=== PATIENT | male | born 1970 | race Caucasian/White ===

== ENCOUNTER 2017-09-20 19:58 | Emergency (ER) | payer OTHER ==
[2017-09-20 20:25] VITALS: BP 149/90
--- NOTE | 2017-09-20 20:51 | UC ---
Hand/Wrist HPI - HPI Summary HPI Summary: Tried to tear finger nail off with a belt press operator. - History Of Current Complaint Chief Complaint: UCLaceration Stated Complaint: LEFT RING FINGERNAIL INJURY Time Seen by Provider: 09/20/17 20:41 Hx Obtained From: Patient Mechanism Of Injury: spool sander 40 grit sandpaper on left 4th finger. Onset/Duration: Sudden Onset, Still Present Severity Initially: Severe Severity Currently: Severe Character Of Pain: Sharp, Throbbing Aggravating Factor(s): Movement Alleviating Factor(s): Ice Associated Signs And Symptoms: Negative: Numbness/Tingling Related History: Dominant Hand Right - Allergies/Home Medications Allergies/Adverse Reactions: Allergies Allergy/AdvReac Type Severity Reaction Status Date / Time No Known Allergies Allergy Verified 09/20/17 20:25 Home Medications: Home Medications Carisoprodol TAB* [Soma TAB*] 350 mg PO Q6H PRN 09/20/17 [History Confirmed ] Hydrocodone-Acetaminophen [Hydrocodone Bitartrate/AC 7.5-325 mg] 1 tab PO QID [History Confirmed 09/20/17] SUMAtriptan TAB* [Imitrex TAB*] 25 mg PO SEE INSTRUCTIONS 09/20/17 [History Confirmed 09/20/17] PMH/Surg Hx/FS Hx/Imm Hx Cardiovascular History: Hypertension - Surgical History Surgical History: Yes Surgery Procedure, Year, and Place: LASIK - Family History Known Family History: Positive: Hypertension, Diabetes Negative: Cardiac Disease - Social History Occupation: Employed Full-time Lives: With Family Alcohol Use: None Substance Use Type: None Smoking Status (MU): Never Smoked Tobacco Review of Systems Skin: Other - wound left 4th finger over nail. Is Patient Immunocompromised?: No All Other Systems Reviewed And Are Negative: Yes Physical Exam Triage Information Reviewed: Yes Appearance: Well-Appearing, Well-Nourished, Pain Distress Vital Signs: Initial Vital Signs Temp 98.2 F 09/20/17 20:22 Pulse 54 09/20/17 20:22 Resp 16 09/20/17 20:22 BP 149/90 09/20/17 20:22 Pulse Ox 100 09/20/17 20:22 Vital Signs Reviewed: Yes Eyes: Positive: Conjunctiva Clear Neck exam: Normal Respiratory Exam: Normal Cardiovascular Exam: Normal Musculoskeletal: Positive: ROM Limited @ - Left ring finger Neurological Exam: Normal Psychological Exam: Normal Skin: Positive: Other - Open wound left 4th finger with nail avulsed. Tourniquet placed as bleeding was profuse. Procedures - Laceration/Wound Repair 1 Location: upper extremity - left 4th finger under nail Description: Joint Proximity - over the left 4th Distal phalynx. UNABLE TO REPAIR. Anesthesia: Digital - 0.25%, Marcaine Length, Depth and Shape: 0.8 cm jagged under the nail Betadine Prep?: Yes Laceration/Wound Explored: clean Closure: Skin Adhesive - used to hold nail in place. Number of Sutures: 0 - Unable to repair as wound extends down onto the distal phalynx Diagnostics - Radiology No standard instances Xray Interpretation: Positive (See Comments) - Distal phalynx fracture Radiology Interpretation Completed By: Radiologist Hand/Wrist Course/Dx - Differential Dx/Diagnosis Differential Diagnosis/HQI/PQRI: Abrasion, Fracture, Puncture Wound Provider Diagnoses: Open fracture distal 4th finger phalynx. with nail avulsion Discharge - Discharge Plan Condition: Stable Disposition: HOME Referrals: Harley Greenwood MD [Primary Care Provider] - Additional Instructions: GO STRAIGHT TO THE [facility].
[2017-09-20] MEDS ORDERED: Bupivacaine 0.5%* 50 ML VIAL INJ ONE (20:56)
[2017-09-20] MEDS ORDERED: Bupivacaine 0.25% SDV* 30 ML ONE (21:03)
[2017-09-20] MEDS ORDERED: Bupivacaine 0.25% SDV* 30 ML INJ ONE (21:03)
[2017-09-20] MEDS ORDERED: Gelfoam 12-7 ADSORBABL SPONGE* 1 EA SPONGE ONE (21:26)
--- NOTE | 2017-09-20 22:05 | RAD ---
INDICATION: Left ring finger injury. TECHNIQUE: 3 views of the left ring finger were obtained. FINDINGS: There is a metal clamp which projects over the proximal phalanx. There appears to be tourniquet present at the level of the midportion of the proximal phalanx. There is soft tissue swelling adjacent to the distal phalanx. There is air in the region of the nailbed along the dorsal aspect of the distal phalanx. There is an adjacent slightly comminuted nondisplaced fracture of the tuft of the distal phalanx likely representing an open fracture. No other fractures are seen. IMPRESSION: SLIGHTLY COMMINUTED NONDISPLACED OPEN FRACTURE OF THE DISTAL PHALANX.
== END 2017-09-20 22:16 | disposition short-term general hospital (02) ==
LOC: UCCORT 19:58
DX: S62.665B Nondisplaced fracture of distal phalanx of left ring finger, initial encounter for open fracture (principal); W29.8XXA Contact with other powered hand tools and household machinery, initial encounter; Y93.9 Activity, unspecified; Y92.9 Unspecified place or not applicable; I10 Essential (primary) hypertension
CPT/HCPCS: 73140; 99212; A9270-GY; G0463

== ENCOUNTER 2017-09-20 22:55 | Emergency (ER) | payer OTHER ==
[2017-09-20] MEDS ORDERED: ceFAZolin 1 GM VIAL(*) 1 GM in NS 0.9% 50 ML* 50 ML IVPB ONE (23:21)
[2017-09-20] MEDS ORDERED: Lidocaine 1%* 5 ML VIAL INJ ONE (23:35)
--- NOTE | 2017-09-20 23:43 | ED ---
Upper Extremity Pain - HPI Summary HPI Summary: 46M presents with left ring finger. He got it stuck in a michelle. He nail was avulsed so he went to urgent care where had xray showed open tuft fracture. The provider in urgent care shoved the nail back under and glue it. He states the area continued to bleed so placed in pressure dressing and sent to ED. in ED there is no active bleeding. patient is not on blood thinners. 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 no pain at moment as was blocked digitally. tetanus is up to date. did not give antibiotic in urgent care. - History of Current Complaint Chief Complaint: EDExtremityUpper Stated Complaint: LT RING FINGER INJURY Time Seen by Provider: 09/20/17 23:17 - Allergies/Home Medications Allergies/Adverse Reactions: Allergies Allergy/AdvReac Type Severity Reaction Status Date / Time No Known Allergies Allergy Verified 09/20/17 20:25 PMH/Surg Hx/FS Hx/Imm Hx Endocrine/Hematology History: Denies: Hx Diabetes Cardiovascular History: Reports: Hx Hypertension Denies: Hx Pacemaker/ICD History: Denies: Hx Renal Disease Sensory History: Denies: Hx Hearing Aid Psychiatric History: Denies: Hx Panic Disorder - Surgical History Surgery Procedure, Year, and Place: [facility] Infectious Disease History: No Infectious Disease History: Denies: Traveled Outside the [place] in Last 30 Days - Family History Known Family History: Positive: Hypertension, Diabetes Negative: Cardiac Disease - Social History Alcohol Use: None Substance Use Type: Reports: None Smoking Status (MU): Never Smoked Tobacco Review of Systems Negative: Fever Negative: Chest Pain Negative: Shortness Of Breath Positive: Other - left ring finger nail avulsion All Other Systems Reviewed And Are Negative: Yes Physical Exam Triage Information Reviewed: Yes Vital Signs On Initial Exam: Initial Vitals Temp Pulse Resp BP Pulse Ox 97.9 F 67 16 153/106 99 09/20/17 23:04 09/20/17 23:04 09/20/17 23:04 09/20/17 23:04 09/20/17 23:04 Vital Signs Reviewed: Yes Appearance: Positive: Well-Appearing Skin: Positive: Warm, Dry Head/Face: Positive: Normal Head/Face Inspection Eyes: Positive: Normal, Conjunctiva Clear Respiratory/Lung Sounds: Positive: Clear to Auscultation, Breath Sounds Present Cardiovascular: Positive: Normal, RRR Musculoskeletal: Positive: Strength/ROM Intact - left ring finger, Other - nail in place on left index finger with glue, good pulses Neurological: Positive: Normal Psychiatric: Positive: Normal - Yessenia Coma Scale Coma Scale Total: 15 Diagnostics - Vital Signs Vital Signs Temp Pulse Resp BP Pulse Ox 09/20/17 23:04 97.9 F 67 16 153/106 99 - Laboratory Lab Statement: Any lab studies that have been ordered have been reviewed, and results considered in the medical decision making process. Course/Dx - Course Course Of Treatment: 46M presents with left ring finger. He got it stuck in a michelle. He nail was avulsed so he went to urgent care where had xray showed open tuft fracture. The provider in urgent care shoved the nail back under and glue it. He states the area continued to bleed so placed in pressure dressing and sent to ED. in ED there is no active bleeding. patient is not on blood thinners. 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 no pain at moment as was blocked digitally. tetanus is up to date. did not give antibiotic in urgent care. removed pressure dressing and no active bleeding. nailbed is back in place. gave dose of antibiotics. discussed case with dr shafer said continue antibiotics and follow up with him. gave short course of pain medication and antibiotic. patient understand and agrees with plan. - Diagnoses Differential Diagnosis/HQI/PQRI: Positive: Fracture (Open), Laceration, Other - avulsion nail Provider Diagnoses: Open fracture of tuft of distal phalanx of finger, Nail avulsion - Physician Notifications Discussed Care of Patient With: dr shafer Time Discussed With Above Provider: 11:35 - keflex, follow up with ortho Discharge - Discharge Plan Condition: Good Disposition: HOME Prescriptions: Cephalexin CAP* [Keflex CAP*] 500 mg PO BID #14 cap oxyCODONE/Acetamin 5/325 MG* [Percocet 5/325 TAB*] 1 tab PO Q6H PRN #10 tab MDD 4 PRN Reason: Pain Patient Education Materials: Finger Fracture (ED), Nail Avulsion (ED) Referrals: Harley Greenwood MD [Primary Care Provider] - Hardeep Shafer MD [Medical Doctor] - Additional Instructions: Take keflex twice a day for 7 days Keep area in pressure dressing for 24 hours, after 24 hours check for sign of infection and change pressure dressing for another 24 hours Keep area covered after 48 hours and keep splint in place Take ibuprofen or Tylenol every 6 hours, use narcotic for break through pain every 6 hours Follow up with ortho Return to ED if develop any signs of infection such as fever, spreading redness , or pus formation or if bleed through pressure dressing or any new or worsening symptoms
[2017-09-21] MEDS ORDERED: oxyCODONE/Acetamin 5/325 MG* TAB PO ONE (00:14)
[2017-09-21 00:35] VITALS: BP 146/93
== END 2017-09-21 00:40 | disposition home or self-care (01) ==
LOC: ED 22:55
DX: S62.635B Displaced fracture of distal phalanx of left ring finger, initial encounter for open fracture (principal); W31.2XXA Contact with powered woodworking and forming machines, initial encounter; Y93.9 Activity, unspecified; Y92.9 Unspecified place or not applicable
CPT/HCPCS: 96374; 99283; A9270-GY; J0690